=== PATIENT | female | born 1970 | race Caucasian/White ===

== ENCOUNTER → 2016-12-08 | Outpatient (CLI) | payer MEDICAID | LOC: FIMAGING 07:35 | DX: Z12.31 Encounter for screening mammogram for malignant neoplasm of breast (principal) | CPT/HCPCS: G0202 ==

== ENCOUNTER 2016-12-17 14:02 | Day surgery (SDC) | payer MEDICAID ==
[2016-12-17] MEDS ORDERED: LIDOCAINE 1% 2 ML INJ ONE (14:26)
[2016-12-17] MEDS ORDERED: LIDOCAINE 1% 5 ML SDV ID PRN (14:41)
[2016-12-17] MEDS ORDERED: LR 1,000 ML IV ONE (14:41)
[2016-12-17] MEDS ORDERED: SURGIFLO MATRIX KIT WITH THROMBIN TP ONE (15:20)
[2016-12-17] MEDS ORDERED: LIDO/EPI 1% **Not for Epidural 20 ML MDV ONE (15:21)
[2016-12-17] MEDS ORDERED: SCOPOLAMINE HYDROBROMIDE 1.5 MG PATCH TD ONE ×2 (16:16→16:30)
[2016-12-17] MEDS ORDERED: MIDAZOLAM 2 MG/2 ML VIAL ONE ×2 (16:16→16:28)
[2016-12-17] MEDS ORDERED: PROPOFOL/EMULSION 500 MG/50 ML BOTTLE IV ONE (16:27)
[2016-12-17] MEDS ORDERED: fentaNYL 250 MCG/5 ML INJ ONE (16:27)
[2016-12-17] MEDS ORDERED: PROPOFOL 200 MG/20 ML VIAL ONE ×3 (16:49→17:39)
[2016-12-17] MEDS ORDERED: ROCURONIUM 50 MG/5 ML VIAL ONE (17:37)
[2016-12-17] MEDS ORDERED: LIDOCAINE 2% 5 ML SDV ONE (17:37)
[2016-12-17] MEDS ORDERED: DEXAMETHASONE 4 MG/ML VIAL ONE ×2 (17:37)
[2016-12-17] MEDS ORDERED: fentaNYL 100 MCG/2 ML INJ ONE ×2 (17:38→19:20)
[2016-12-17] MEDS ORDERED: ONDANSETRON 4 MG/2 ML VIAL ONE ×3 (17:38→20:26)
[2016-12-17] MEDS ORDERED: METOPROLOL TARTRATE 5 MG/5 ML INJ ONE (17:48)
[2016-12-17] MEDS ORDERED: RANITIDINE 50 MG/2 ML VIAL ONE (18:52)
[2016-12-17] MEDS ORDERED: SUGAMMADEX SODIUM 200 MG/2 ML VIAL IVP ONE (18:52)
[2016-12-17] MEDS ORDERED: HYDROCODONE/APAP 5/325 TAB ONE (19:33)
--- NOTE | 2016-12-30 06:41 | GOP ---
[f rep st] OPERATIVE REPORT DATE OF OPERATION: 12/17/2016 SURGEON: Carlos Manuel Nunez MD ANESTHESIA: General. PREOPERATIVE DIAGNOSIS: 1. Chronic sinusitis. 2. Nasal obstruction. POSTOPERATIVE DIAGNOSIS: 1. Chronic sinusitis. 2. Nasal obstruction.. PROCEDURE PERFORMED: 1. Septoplasty. 2. Inferior turbinate reduction. 3. Left total ethmoidectomy. 4. Left maxillary antrostomy with tissue removal. 5. Left middle turbinectomy. FINDINGS: Obstructive septal deviation, bilateral inferior turbinate hypertrophy, left-sided sinus disease, and hypertrophic middle turbinates. SPECIMENS: Left sinonasal contents. ESTIMATED BLOOD LOSS: 40 mL. INDICATIONS: The patient was seen in outpatient clinic and was found to have predominantly left-sided, chronic sinusitis with bilateral inferior turbinate hypertrophy and obstructive septal deviation. Given her history and findings, she was determined to be an appropriate candidate for the above-stated procedures. The risks, benefits, and alternatives to the procedures were explained at length to the patient, who stated she understood and agreed. DESCRIPTION OF PROCEDURE: Patient was brought to the operating room by Anesthesiology, and placed on the operating table. Once the appropriate level of anesthesia was achieved, the patient was prepared and registered with [employer] Neuronavigation. This proceeded without difficulty and there was good concordance with the CT images and anatomic sites. Bilateral nasal columella, bilateral nasal septums, and bilateral maxillary lines, and bilateral inferior turbinates were injected with 1% lidocaine with 100,000 epinephrine. The bilateral nasal cavities were then packed with Afrin-soaked pledgets. The patient was then prepped and draped in the usual fashion. The Afrin-soaked pledgets were then removed. The remainder of the procedure was performed under rigid video endoscopic visualization with the use of navigation to confirm anatomic boundaries. A left hemitransfixion incision was created with a needle-tip Bovie electrocautery. The submucoperichondrial and submucoperiosteal flap dissection was then completed with a suction [place] Bud elevator and [place] elevator. Once this flap was completely elevated, a vertical incision was created at the bony cartilaginous junction with a [place] elevator. The contralateral mucosa was elevated off the bony septum using the [place] elevator. A D knife was used to incise the deviated portion of cartilaginous septum, taking care to leave 1 cm dorsal and caudal septal support. The incised portion of quadrangular cartilage was then elevated free of the contralateral mucosa using the [place] elevator. The cartilage was then removed with a Rossi. A straight Luu scissor was used to cut the bony septum superiorly. Following this, a Rossi was used to remove the remaining portions of deviated bony septum. The flaps were laid back in place. Under video endoscopic visualization, the septum appeared straight. The left hemitransfixion incision was closed using two 4-0 chromic sutures. Even after lateralizing the left middle turbinate, there was difficulty visualizing the ethmoid, and the middle meatus was still somewhat blocked. The middle turbinate roots and middle turbinate were injected with 1% lidocaine with 100, 000 epinephrine. A straight-through cut was then used to complete a middle turbinectomy. Mild Bovie suction electrocautery was used along the middle turbinate root for hemostasis. Now, with the middle turbinate removed, there was good visualization of the ethmoid bulla. The uncinate process was removed using a [place] Bud elevator and jxipecma-tjzju-zglmzkn cut. Following this, a straight-through cut and backbiter were used to create a large maxillary antrostomy. There was mild oozing along the posterior border of the antrostomy. Hemostasis was achieved using mild Bovie suction electrocautery. Turbid and polypoid materials were removed from the maxillary sinus and sent with the specimen. The left total ethmoidectomy was then completed using a combination of Kerr[place] and ethmoid curettes. There was good visualization through to the roof of the ethmoid sinus following the procedure. No evidence of skull-based injury or CSF leak. The ethmoid was able to be cleared anteriorly through the frontal recess. The nasal cavity was then irrigated with copious normal saline. The surgical site was inspected for bleeding. No significant bleeding was found. The submucosal resection of first the right and then the left inferior turbinate was completed with a 2 mm microdebrider under video endoscopic visualization. With an anterior turbinate head insertion site, the blade was run anterior to posteriorly through the turbinates. There was good soft tissue reduction bilaterally. First, the right and then the left inferior turbinates were medialized with a Red Bud elevator before being outfractured and placed in a lateral position. Following this, there was good visualization bilaterally through to the nasopharynx from bilateral nasal vestibules. Bacitracin-coated Blandon splints were then placed in bilateral nasal cavities and secured in place using a 3-0 Prolene suture. The patient tolerated these procedures well and was extubated in the operating room prior to being transferred in good condition to postanesthesia. COMPLICATIONS: None. /[id number]/MODL MTDD
== END 2016-12-17 21:10 | disposition home or self-care (01) ==
LOC: FSGY 14:02
PROVIDERS: ATTEND Otolaryngology
DX: J32.9 Chronic sinusitis, unspecified (principal); J34.3 Hypertrophy of nasal turbinates; J34.89 Other specified disorders of nose and nasal sinuses; R09.81 Nasal congestion; R09.82 Postnasal drip; R43.2 Parageusia; K14.8 Other diseases of tongue; K13.0 Diseases of lips; F31.9 Bipolar disorder, unspecified
CPT/HCPCS: J1100; J2250; J2405; J2704; J2780; J3010

== ENCOUNTER 2017-04-06 18:24 | Emergency (ER) | payer MEDICAID ==
--- NOTE | 2017-04-06 18:54 | CPEKG ---
Heart Rate: 54 RR Interval: 1111 P-R Interval: 168 QRSD Interval: 82 QT Interval: 416 QTC Interval: 395 P Ashburn: 50 QRS Ashburn: 46 T Wave Ashburn: 49 EKG Severity - ABNORMAL ECG - EKG Impression: SINUS RHYTHM EKG Impression: NONSPECIFIC T ABNORMALITIES, ANTERIOR LEADS Electronically Signed By: Anshul Redmond 06-Apr-2017 19:16:10
--- NOTE | 2017-04-06 18:57 | EDPHY ---
H & P Time Seen by Provider: 04/06/17 18:56 HPI/ROS: CHIEF COMPLAINT: Left ankle swelling HISTORY OF PRESENT ILLNESS: This 46-year-old woman was in [place] 6 weeks ago and flew back and has had left ankle lateral swelling ever since. It is not painful and there is no redness or fever. She presents tonight for concerns of possible DVT. No known trauma. The other event that happened today was around lunchtime at 12:30 p.m. she had shooting pain in her left upper outer breast upper chest which lasted about 15 minutes and then completely resolved. At the time of radiated outward since she had trouble catching her breath but did not have nausea or vomiting or diaphoresis and no recent injury or trauma. Currently asymptomatic from that. REVIEW OF SYSTEMS: Eye: no change in vision ENT: no sore throat Cardiac: No syncope Pulmonary: No cough or hemoptysis Abdomen: no vomiting, diarrhea, abdominal pain Musculoskeletal: Patient has had multiple polyarthralgias for several years and has been evaluated by Neurology and her primary care physician and is supposed to see a optical systems engineer next. Skin: no rash Neuro: no headache Constitutional: no fever : no urinary symptoms A comprehensive 10 point review of systems is otherwise negative aside from elements mentioned in the history of present illness. PAST MEDICAL HISTORY: ECT, bilateral wrist fractures in 2004, hysterectomy. Was admitted at [facility] this past August for pneumonia and persistent tachycardia. No history of diabetes or hypertension or hypercholesterolemia. Family history: Father had an ND at 71 but no premature coronary disease. Social history: Denies cocaine or drug use General Appearance: Alert and conversant, cooperative. Eyes: No scleral icterus. ENT, Mouth: Normal mucous membranes. Respiratory: Normal respiratory effort, breath sounds equal, lungs are clear to auscultation. No splinting. Cardiovascular: Regular rate and rhythm. Gastrointestinal: Abdomen is soft and non tender. Neurological: Alert and oriented x3. Normally conversant. Face symmetric, normal movement and sensation in all extremities. Skin: Warm and dry, no rashes. Musculoskeletal: Left ankle lateral swelling but no calf tenderness and compartments are soft. No bony tenderness. Normal range of motion of the ankle. Normal Achilles without tenderness. No skin changes over the ankle. Joint is stable. Psychiatric: Not agitated. Emergency Department course/MDM: EKG reviewed and shows T-wave inversions in V1 2 and 3, old EKG requested. Plan for D-dimer and troponin as well as left leg ultrasound. Pretest likelihood for pulmonary embolism is low. Finer: fluid near peroneal tendon, no DVT at 2056: The EKG from [facility] dated 09/03/2016 personally reviewed shows the same T- wave morphology anteriorly as today. I think acute coronary syndrome or pulmonary embolism or aortic dissection is unlikely. Clinically does not have pneumonia or pneumothorax. Left anterior chest wall pain is much more likely, musculoskeletal. Smoking Status: Never smoked Constitutional: Initial Vital Signs Temperature (C) 37 C 04/06/17 18:29 Heart Rate 73 04/06/17 18:29 Respiratory Rate 18 04/06/17 18:29 Blood Pressure 129/89 H 04/06/17 18:29 O2 Sat (%) 97 04/06/17 18:29 O2 Delivery Mode Room Air Allergies/Adverse Reactions: lamotrigine [From Lamictal] Allergy (Mild, Verified 04/06/17 18:29) Rash morphine Allergy (Verified 04/06/17 18:29) Itching Home Medications: Medication Instructions Recorded LORazepam [Ativan 2 mg tab] 1 mg 09/10/12 [place] 04/06/17 Medical Decision Making - Diagnostics EKG Interpretation: 12-lead EKG interpreted by me; official reading is in trace master. My interpretation is sinus rhythm rate 54 with T-wave inversions in V1 2 and 3. Imaging Results: Imaging Impressions Extremity Venous Study 04/06/17 19:15 Impression: 1. No deep venous thrombosis in the left lower extremity. 2. Fluid around the peroneal tendons left lateral malleolus. Consider tendinitis. Findings discussed with Anshul Redmond M.D. at 20:13 hour, 04/06/2017. Differential Diagnosis: Differential diagnosis considered for chest pain including but not limited to myocardial ischemia, aortic dissection, pericarditis, pulmonary embolus, chest wall pain, pleural inflammation and pulmonary infectious causes. Differential for leg pain considered including but not limited to ankle sprain, DVT, arterial occlusion, compartment syndrome, septic joint. - Data Points Laboratory Results: Laboratory Results 04/06/17 18:55 04/06/17 18:55 04/06/17 04/06/17 04/06/17 18:55 18:55 18:55 WBC 7.62 10^3/uL 10^3/uL (3.80-9.50) RBC 4.71 10^6/uL 10^6/uL (4.18-5.33) Hgb 14.0 g/dL g/dL (12.6-16.3) Hct 40.8 % % (38.0-47.0) MCV 86.6 fL fL (81.5-99.8) MCH 29.7 pg pg (27.9-34.1) MCHC 34.3 g/dL g/dL (32.4-36.7) RDW 12.6 % % (11.5-15.2) Plt Count 267 10^3/uL 10^3/uL (150-400) MPV 8.8 fL fL (8.7-11.7) Neut % (Auto) 55.0 % % (39.3-74.2) Lymph % (Auto) 35.0 % % (15.0-45.0) [place] % (Auto) 7.1 % % (4.5-13.0) Eos % (Auto) 1.8 % % (0.6-7.6) Baso % (Auto) 0.7 % % (0.3-1.7) Nucleat RBC Rel Count 0.0 % % (0.0-0.2) Absolute Neuts (auto) 4.19 10^3/uL 10^3/uL (1.70-6.50) Absolute Lymphs (auto) 2.67 10^3/uL 10^3/uL (1.00-3.00) Absolute Monos (auto) 0.54 10^3/uL 10^3/uL (0.30-0.80) Absolute Eos (auto) 0.14 10^3/uL 10^3/uL (0.03-0.40) Absolute Basos (auto) 0.05 10^3/uL 10^3/uL (0.02-0.10) Absolute Nucleated RBC 0.00 10^3/uL 10^3/uL (0-0.01) Immature Gran % 0.4 % % (0.0-1.1) Immature Gran # 0.03 10^3/uL 10^3/uL (0.00-0.10) D-Dimer 0.35 ug/mLFEU ug/mLFEU (0.00-0.50) Sodium 138 mEq/L mEq/L (134-144) Potassium 3.9 mEq/L mEq/L (3.5-5.2) Chloride 105 mEq/L mEq/L (97-110) Carbon Dioxide 20 mEq/l L mEq/l (22-31) Anion Gap 13 mEq/L mEq/L (8-16) BUN 21 mg/dL mg/dL (7-23) Creatinine 0.6 mg/dL mg/dL (0.6-1.0) Estimated GFR > 60 Glucose 94 mg/dL mg/dL (70-100) Calcium 9.7 mg/dL mg/dL (8.5-10.4) Troponin I < 0.012 ng/mL ng/mL (0.000-0.034) Departure - Departure Disposition: Home, Routine, Self-Care Clinical Impression: Left ankle swelling Chest pain Qualifiers: Chest pain type: unspecified Qualified Code(s): R07.9 - Chest pain, unspecified Condition: Good Instructions: Chest Pain (ED), Swollen Ankle Joint (ED) Additional Instructions: Please follow-up with your primary care provider in the next 1-2 weeks for further evaluation of your symptoms, and possible orthopedic referral for your ankle. Radiologist saw fluid around your peroneal tendon, possible tendinitis? Referrals: Diana Alvarez PA [Primary Care Provider] - As per Instructions
[2017-04-06 19:19] LABS: % IMMATURE GRANULYOCYTES 0.4 % (0.0-1.1); ABSOLUTE IMMATURE GRANULOCYTES 0.03 10^3/uL (0.00-0.10); ADD DIFF? NO; ADD MORPH? NO; ADD SCAN? NO; ATYPICAL LYMPHOCYTE FLAG 10 (0-99); FRAGMENT RBC FLAG 0 (0-99); HEMATOCRIT 40.8 % (38.0-47.0); LEFT SHIFT FLG 0 (0-99); LIPEMIA HEMOLYSIS FLAG 90 (0-99); MEAN CELL HEMOGLOBIN 29.7 pg (27.9-34.1); MEAN CELL HEMOGLOBIN CONCENTR. 34.3 g/dL (32.4-36.7); MEAN CELL VOLUME 86.6 fL (81.5-99.8); MEAN PLATELET VOLUME 8.8 fL (8.7-11.7); PLATELET CLUMPS FLAG 0 (0-99); PLATELET COUNT 267 10^3/uL (150-400); RED BLOOD CELL COUNT 4.71 10^6/uL (4.18-5.33); RED CELL DISTRIBUTION WIDTH 12.6 % (11.5-15.2)
[2017-04-06 19:25] LABS: ANION GAP 13 mEq/L (8-16); CALCIUM 9.7 mg/dL (8.5-10.4); CARBON DIOXIDE 20 mEq/l (22-31); CHLORIDE 105 mEq/L (97-110); CREATININE 0.6 mg/dL (0.6-1.0); GLOMERULAR FILTRATION RATE > 60; GLUCOSE 94 mg/dL (70-100); POTASSIUM 3.9 mEq/L (3.5-5.2); SODIUM 138 mEq/L (134-144)
[2017-04-06 19:37] LABS: TROPONIN I < 0.012 ng/mL (0.000-0.034)
[2017-04-06 21:18] VITALS: BP 99/67; PULSE 60; RESP 28; TEMP 98.4; O2SAT 94
== END 2017-04-06 21:18 | disposition home or self-care (01) ==
DX: M25.472 Effusion, left ankle (principal); R07.9 Chest pain, unspecified

== ENCOUNTER → 2017-12-09 | Outpatient (CLI) | payer MEDICAID, OTHER | LOC: FIMAGING 16:14 | PROVIDERS: ATTEND Physician Assistant | DX: Z12.31 Encounter for screening mammogram for malignant neoplasm of breast (principal) ==